=== PATIENT | female | born 2000 | race Two or more races ===

== ENCOUNTER 2024-08-11 09:02 | Emergency (ER) | payer MEDICAID ==
[2024-08-11 09:50] LABS: BASOPHILS ABSOLUTE AUTO 0.04 K/uL (0.00-0.10); BASOPHILS PERCENT AUTO 0.6 % (0.1-1.3); EOSINOPHILS PERCENT AUTO 7.5 % (0.0-5.4); HEMATOCRIT 39.2 % (34.3-46.0); HEMOGLOBIN 14.1 g/dL (11.2-15.5); IMMATURE GRAN PERCENT AUTO 0.3 % (0.0-0.7); LYMPHOCYTES ABSOLUTE AUTO 2.11 K/uL (0.8-3.3); LYMPHOCYTES PERCENT AUTO 31.7 % (11.4-47.7); MEAN CORPUSCULAR HEMOGLOBIN 31.3 pg (31.6-35.5); MEAN CORPUSCULAR VOLUME 86.9 fL (81.4-99.0); MONOCYTES ABSOLUTE AUTO 0.45 K/uL (0.20-0.90); MONOCYTES PERCENT AUTO 6.8 % (3.3-12.6); NEUTROPHILS ABSOLUTE AUTO 3.53 K/uL (1.0-7.6); NEUTROPHILS PERCENT AUTO 53.1 % (40.0-78.1); PLATELET COUNT,PLT 192 K/uL (130-375); RED BLOOD CELL COUNT 4.51 M/uL (3.77-5.24); WHITE BLOOD CELL COUNT,WBC 6.7 K/uL (3.2-11.0)
[2024-08-11 09:52] LABS: IMMATURE GRAN ABSOLUTE AUTO 0.02 K/uL (0.00-0.23)
[2024-08-11 10:10] LABS: ALANINE AMINOTRANSFERASE,ALT 82 U/L (12-78); ALBUMIN 3.7 g/dL (3.4-5.0); ALKALINE PHOSPHATASE 149 U/L (46-116); ANION GAP 11.4 mmol/L (5.0-14.0); ASPARTATE AMNIOTRANSFERASE,AST 35 U/L (15-37); BILIRUBIN TOTAL 0.7 mg/dL (0.2-1.0); BLOOD UREA NITROGEN,BUN 15 mg/dL (7-18); CALCIUM 9.4 mg/dL (8.5-10.1); CARBON DIOXIDE,CO2 25 mmol/L (21-32); CHLORIDE,CL 104 mmol/L (100-108); CREATININE 0.8 mg/dL (0.6-1.0); EST CRCL DRUG DOSING (CG) 79.23 mL/min; ESTIMATED GFR 107 mL/min (>60); GLUCOSE RANDOM 100 mg/dL (74-106); POTASSIUM,K 3.6 mmol/L (3.6-5.2); PROTEIN TOTAL,TP 7.6 g/dL (6.4-8.2); SODIUM,NA 140 mmol/L (140-148)
[2024-08-11 10:11] LABS: APPEARANCE,URINE CLEAR (CLEAR); BILIRUBIN,URINE NEGATIVE (NEGATIVE); COLOR,URINE YELLOW (YELLOW); GLUCOSE,URINE NEGATIVE (NEGATIVE); KETONES,URINE NEGATIVE (NEGATIVE); LEUKOCYTE ESTERASE,URINE NEGATIVE (NEGATIVE); NITRITE,URINE NEGATIVE (NEGATIVE); OCCULT BLOOD,URINE NEGATIVE (NEGATIVE); PH,URINE 5.5 (5.0-8.0); PROTEIN,URINE NEGATIVE (NEGATIVE); UROBILINOGEN,URINE 0.2 EU/dL (0.2-1.0)
[2024-08-11 10:13] LABS: BACTERIA,URINE FEW; EPITHELIAL CELLS,URINE MODERATE; RBC,URINE 0-5 (0-5); WBC,URINE 0-5 (0-5)
[2024-08-11 10:14] LABS: AMORPHOUS SEDIMENT,URINE NOT SEEN; MUCUS,URINE FEW
[2024-08-11] MEDS: Ketorolac 30 MG/ML SDV IM ONE (10:59)
== END 2024-08-11 11:42 | disposition home or self-care (01) ==
LOC: JP.ED 09:02
DX: R10.84 Generalized abdominal pain (principal); R11.0 Nausea
CPT/HCPCS: 36415; 74176; 80053; 81001; 83690; 84703; 85025; 96372; 99284; J1885

== ENCOUNTER 2025-02-15 14:15 | Emergency (ER) | payer MEDICAID ==
[2025-02-15] MEDS: Ibuprofen 400 MG Tab PO ONE (15:51)
[2025-02-15] MEDS: Cyclobenzaprine 10 MG Tab PO ONE (15:52)
== END 2025-02-15 17:20 | disposition home or self-care (01) ==
LOC: JP.ED 14:15
DX: M62.830 Muscle spasm of back (principal)
CPT/HCPCS: 72100; 72170; 99283; A9270; 99282

== ENCOUNTER 2025-06-23 16:23 | Emergency (ER) | payer MEDICAID | END 2025-06-23 17:44 | disposition home or self-care (01) | LOC: JP.ED 16:23 | DX: H11.001 Unspecified pterygium of right eye (principal); H04.121 Dry eye syndrome of right lacrimal gland | CPT/HCPCS: 99283 ==